=== PATIENT | female | born 1970 | race Caucasian/White ===

== ENCOUNTER → 2017-09-17 | Outpatient (CLI) | payer MEDICAID ==
[~2017-09-17] MED LIST: FISH OIL CONC1000 MG PO; FLEXERIL10 MG PO; GEMFIBROZIL600 M1 PO; HCTZ/SPIRONOLAC1 TAB PO; HYDROCHLOROTHIA25 M1 PO; LORTAB 5/500 501 TAB PO; MEDROL 4MG. DOSE4 MG PO; NAPROSYN 500MG500 MG PO; NOMEDS *; TORADOL10 M1 PO; VIBRA-TABS100 MG PO; ZITHROMAX Z PA250 MG PO; ZOFRAN ODT8 MG PO; ZOFRAN4 MG PO
[2017-09-17 14:04] LABS: BUN 16 mg/dL (7-18)
[2017-09-17 14:05] LABS: GFR (ESTIMATED) 108 ML/MIN (59-)
[2017-09-18 08:47] LABS: Vitamin D, 25-Hydroxy 42.1 ng/mL (30.0-100.0)
== END ==
LOC: LAB 11:52
PROVIDERS: Nurse Practitioner
DX: R63.5 Abnormal weight gain (principal); I10 Essential (primary) hypertension; E78.5 Hyperlipidemia, unspecified; Z79.899 Other long term (current) drug therapy